=== PATIENT | female | born 1945 | race Two or more races ===

== ENCOUNTER 2019-06-17 14:26 | Emergency (ER) | payer OTHER ==
[~2019-06-17] VITALS: Ht 149.9 cm; Wt 63.5 kg
[~2019-06-17 14:26] MED LIST: IPRA0.00 NEB; MELO1TAB56 PO; TRAM50TA2 PO
[2019-06-17 15:18] VITALS: BP 171/66
[2019-06-17 15:20] LABS: Basophils # (auto) 0.1 10 ^3/uL (0-0.2); Basophils % (auto) 0.6 % (0.0-2.0); Eosinophils # (auto) 0.2 10 ^3/uL (0-0.8); Eosinophils % (auto) 1.9 % (0.0-7.0); Hematocrit 42.8 % (36.0-46.0); Hemoglobin 13.7 g/dL (12.2-16.2); Lymphocytes % (auto) 28.7 % (10.0-50.0); Mean Corpuscular Hemoglobin 26.8 pg (28.0-32.0); Mean Corpuscular Hgb Conc. 31.9 g/dL (32.0-36.0); Mean Corpuscular Volume 83.8 fL (80.0-100.0); Monocytes # (auto) 0.7 10 ^3/uL (0-1.3); Monocytes % (auto) 7.2 % (0.0-12.0); Neutrophils # (auto) 6.4 10 ^3/uL (1.6-8.6); Neutrophils % (auto) 61.6 % (37.0-80.0); Nucleated Red Blood Cells % 0.1 %; Platelet Count (auto) 313 10^3/uL (140-450); Red Cell Distribution Width 15.3 % (11.8-14.3); White Blood Cell 10.4 10^3/uL (4.4-10.8)
[2019-06-17] MEDS ORDERED: SODIUM CHLORIDE 0.9% 1,000 ML IV ONE (15:34)
[2019-06-17] MEDS ORDERED: LORazepam 2MG/ML-1ML VIAL IV ONE (15:45)
[2019-06-17] MEDS ORDERED: FUROSEMIDE 20 MG/2 ML VIAL IV ONE (15:45)
[2019-06-17] MEDS ORDERED: MECLIZINE HCL 25 MG TAB PO ONE (15:45)
[2019-06-17 15:51] LABS: Albumin 3.3 g/dL (3.4-5.0); Anion Gap 8 (5-15); Blood Urea Nitrogen 23 mg/dL (7-18); Calcium 8.2 mg/dL (8.5-10.1); Carbon Dioxide 26 mmol/L (21-32); Chloride 108 mmol/L (98-107); Glucose 128 mg/dL (74-106); Sodium 142 mmol/L (136-145)
[2019-06-17 15:56] LABS: Alanine Aminotransferase 20 U/L (13-56); Alkaline Phosphatase 188 U/L (45-117); Aspartate Aminotransferase 20 U/L (15-37); BUN/Creatinine Ratio 20.4; Bilirubin, Total 0.3 mg/dL (0.2-1.0); GFR African American 61 mL/min; GFR Non-African American 50 mL/min; Total Protein 8.3 g/dL (6.4-8.2)
[2019-06-17 16:31] LABS: Urine WBC None Seen /hpf (0 - 5)
[2019-06-17 16:41] LABS: Urine Bacteria NONE SEEN /hpf (None Seen); Urine Blood Negative /uL (Negative)
== END 2019-06-17 17:07 | disposition home or self-care (01) ==
LOC: ER 14:26
DX: R42 Dizziness and giddiness (principal); R51 Headache; I12.9 Hypertensive chronic kidney disease with stage 1 through stage 4 chronic kidney disease, or unspecified chronic kidney disease; N18.3 Chronic kidney disease, stage 3 (moderate); J44.9 Chronic obstructive pulmonary disease, unspecified; Z90.49 Acquired absence of other specified parts of digestive tract; Z90.710 Acquired absence of both cervix and uterus
CPT/HCPCS: 36415; 70450; 80053; 81001; 83735; 84484; 85025; 93005; 96361; 96374; 96375; 99285; J1940; J2060; J7030; J8597